=== PATIENT | male | born 1940 | race Caucasian/White ===

== ENCOUNTER 2019-11-20 09:30 | Outpatient (RCR) | payer MEDICARE, OTHER ==
[2019-12-17] MEDS ORDERED: GLIM1TAB4 PO (10:16)
[2019-12-17] MEDS ORDERED: FURO40TA4 PO (10:16)
[2019-12-17] MEDS ORDERED: TERA5CAP3 PO (10:16)
[2019-12-17] MEDS ORDERED: LEVO75TA6 PO (10:16)
[2019-12-17] MEDS ORDERED: TRAM50TA3 PO (10:16)
[2019-12-17] MEDS ORDERED: ASPI-586 PO (10:16)
[2019-12-17] MEDS ORDERED: SIMV40TA25 PO (10:16)
[2019-12-17] MEDS ORDERED: FINA5TAB6 PO (10:16)
[2019-12-17] MEDS ORDERED: CARV6.252 PO (10:16)
[2019-12-17] MEDS ORDERED: AMLO10TA4 PO (10:16)
== END 2020-02-18 | disposition home or self-care (01) ==
LOC: ONC 09:30
PROVIDERS: ATTEND Radiology Radiation Oncology
DX: C61 Malignant neoplasm of prostate (principal); E11.9 Type 2 diabetes mellitus without complications; I10 Essential (primary) hypertension; Z87.442 Personal history of urinary calculi; Z79.82 Long term (current) use of aspirin; Z79.899 Other long term (current) drug therapy; Z79.84 Long term (current) use of oral hypoglycemic drugs; Z96.653 Presence of artificial knee joint, bilateral
CPT/HCPCS: 99204

== ENCOUNTER 2019-12-17 09:36 | Outpatient (CLI) | payer MEDICARE, OTHER ==
[~2019-12-17] VITALS: Ht 170.2 cm; Wt 94.1 kg
[2019-12-17] MEDS ORDERED: ASPI-586 PO (10:16)
[2019-12-17] MEDS ORDERED: AMLO10TA4 PO (10:16)
[2019-12-17] MEDS ORDERED: FURO40TA4 PO (10:16)
[2019-12-17] MEDS ORDERED: GLIM1TAB4 PO (10:16)
[2019-12-17] MEDS ORDERED: FINA5TAB6 PO (10:16)
[2019-12-17] MEDS ORDERED: SIMV40TA25 PO (10:16)
[2019-12-17] MEDS ORDERED: CARV6.252 PO (10:16)
[2019-12-17] MEDS ORDERED: LEVO75TA6 PO (10:16)
[2019-12-17] MEDS ORDERED: TRAM50TA3 PO (10:16)
[2019-12-17] MEDS ORDERED: TERA5CAP3 PO (10:16)
== END 2019-12-17 10:42 | disposition home or self-care (01) ==
LOC: PREOP 09:36
PROVIDERS: ATTEND Radiology Radiation Oncology
DX: Z01.818 Encounter for other preprocedural examination (principal)

== ENCOUNTER 2019-12-23 12:50 | Day surgery (SDC) | payer MEDICARE, OTHER ==
[~2019-12-23] VITALS: Ht 162.6 cm; Wt 94.1 kg
[~2019-12-23 12:50] MED LIST: AMLO10TA4 PO; ASPI-586 PO; CARV6.252 PO; FINA5TAB6 PO; FURO40TA4 PO; GLIM1TAB4 PO; LEVO75TA6 PO; SIMV40TA25 PO; TERA5CAP3 PO; TRAM50TA3 PO
[2019-12-23 13:05] VITALS: BP 160/99
--- NOTE | 2019-12-23 13:07 | Progress Note-Pre Operative ---
Pre-Operative Progress Note H&P Reviewed The H&P was reviewed, patient examined and no changes noted. Date Seen by Provider: Dec 23, 2019 Time Seen by Provider: 13:06 Date H&P Reviewed: Dec 23, 2019 Time H&P Reviewed: 13:06 Pre-Operative Diagnosis: Prostate cancer cT1c, PSA 12.26, [place] 7 (4+3) RUY RUIZ MD Dec 23, 2019 13:07
[2019-12-23] MEDS ORDERED: LACTATED RINGERS 1,000 ML IV PRN (13:11)
--- NOTE | 2019-12-23 13:12 | Discharge Inst-Simple/Standard ---
Discharge Inst-Standard Reconcile Patient Problems Problems Reviewed?: Yes Discharge Medications New, Converted or Re-Newed RX: RX Given to Pt/Family Patient Instructions/Follow Up Plan of Care/Instructions/FU: 1) CT sim at [facility] on 01/06/20 at 8:30 am arrive at 8:15 am Activity as Tolerated: Yes Discharge Diet: No Restrictions RUY RUIZ MD Dec 23, 2019 13:12
[2019-12-23] MEDS ORDERED: LEVOFLOXACIN 500 MG/100 ML IV 100 ML IV ONE (13:15)
[2019-12-23 14:04] LABS: BUN/CREATININE RATIO 11; CALCIUM 9.2 MG/DL (8.5-10.1); CARBON DIOXIDE 23 MMOL/L (21-32); CHLORIDE 109 MMOL/L (98-107); CREATININE SERUM 0.89 MG/DL (0.60-1.30); GFR ESTIMATED > 60; GLUCOSE 117 MG/DL (70-105); POTASSIUM 3.4 MMOL/L (3.6-5.0); SODIUM 142 MMOL/L (135-145)
[2019-12-23] MEDS ORDERED: LIDOCAINE PF 2% 5 ML (XYLOCAINE) VIAL ONE (15:06)
[2019-12-23] MEDS ORDERED: proPOfol 200 MG/20 ML (DIPRIVAN) VIAL IV ONE (15:06)
[2019-12-23] MEDS ORDERED: fentaNYL INJECTION 100 MCG/2 ML AMP ONE (15:07)
[2019-12-23] MEDS ORDERED: ONDANSETRON 4 MG/2 ML (SDV) Z0FRAN ONE (15:07)
[2019-12-23] MEDS ORDERED: SEVOFLURANE (ULTANE) 15 ML INHAL SOLN ONE ×2 (15:07→15:42)
[2019-12-23 15:52] VITALS: BP 154/80
[2019-12-23 16:00] VITALS: BP 148/92
[2019-12-23 16:10] VITALS: BP 157/95
--- NOTE | 2019-12-23 16:11 | Progress Note-Post Operative ---
Post-Operative Progess Note Surgeon (s)/Electrician Journeyman Wireman (s) Surgeon Anny CHOI MD Electrician Journeyman Wireman: RUY RUIZ MD Pre-Operative Diagnosis Prostate cancer cT1c, PSA 12.26, [place] 7 (4+3) Post-Operative Diagnosis Same as pre-op Procedure & Operative Findings Date of Procedure 12/23/19 Procedure Performed/Findings (1) Placement of fiducial gold seed markers (2) Injection of biodegradable hydrogel prostate-rectal spacer utilizing the SpaceOAR system Anesthesia Type General Estimated Blood Loss Estimated blood loss (mL): Minimal Specimens/Packing Specimens Removed None Packing: None RUY RUIZ MD Dec 23, 2019 16:11
--- NOTE | 2019-12-23 16:13 | Anesthesia-General Post-Op ---
General Patient Condition Mental Status/LOC: Same as Preop Cardiovascular: Satisfactory Nausea/Vomiting: Absent Respiratory: Satisfactory Pain: Controlled Complications: Absent Post Op Complications Complications None Follow Up Care/Instructions Patient Instructions None needed. Anesthesia/Patient Condition Patient Condition Patient is doing well, no complaints, stable vital signs, no apparent adverse anesthesia problems. No complications reported per nursing. JUNIOR FOSS CRNA Dec 23, 2019 16:13
[2019-12-23 16:25] VITALS: BP_SYST 157; BP_SYST 162; BP_DIAS 102; BP_DIAS 95
[2019-12-23 17:10] VITALS: BP_SYST 142; BP_SYST 157; BP_DIAS 87; BP_DIAS 95
--- OUTSIDE RECORDS SUMMARY | 2019-12-25 10:11 | XMS REPORT | Continuity of Care Document ---
Author Organization Unknown Address Unknown Phone Unavailable Allergies Active Description Code Type Severity Reaction Onset Reported/Identified Relationship to Patient Clinical Status Yes No Known Drug Allergies [id number] Drug Allergy Unknown N/A 12/17/2019 Medications There is no data. 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, BILAT 12/17/2019 RUY RUIZ MD Ot C61 MALIGNANT NEOPLASM OF PROSTATE 12/17/2019 RUY RUIZ MD Ot E11.9 TYPE 2 DIABETES MELLITUS WITHOUT COMPLIC 12/17/2019 RUY RUIZ MD Ot I10 ESSENTIAL (PRIMARY) HYPERTENSION 12/17/2019 RUY RUIZ MD Ot Z79.8 2 BUSINESS SYSTEM CONSULTANT (CURRENT) USE OF ASPIRIN 12/17/2019 RUY RUIZ MD Ot Z79.8 4 [facility] (CURRENT) USE OF ORAL HYPOGLYC 12/17/2019 RUY RUIZ MD Ot Z79.8 99 OTHER BUSINESS SYSTEM CONSULTANT (CURRENT) DRUG THERAPY 12/17/2019 RUY RUIZ MD Ot Z87.4 42 PERSONAL HISTORY OF URINARY CALCULI 12/17/2019 RUY RUIZ MD Ot 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, BILAT 12/17/2019 RUY RUIZ MD Ot C61 MALIGNANT NEOPLASM OF PROSTATE 12/17/2019 RUY RUIZ MD Ot E11.9 TYPE 2 DIABETES MELLITUS WITHOUT COMPLIC 12/17/2019 RUY RUIZ MD E Ot I10 ESSENTIAL (PRIMARY) HYPERTENSION 12/17/2019 RUY RUIZ MD Ot Z79.8 2 [facility] (CURRENT) USE OF ASPIRIN 12/17/2019 RUY RUIZ MD Ot Z79.8 4 [facility] (CURRENT) USE OF ORAL HYPOGLYC 12/17/2019 RUY RUIZ MD E Ot Z79.8 99 OTHER [facility] (CURRENT) DRUG THERAPY 12/17/2019 RUY RUIZ MD E Ot Z87.4 42 PERSONAL HISTORY OF URINARY CALCULI 12/17/2019 RUY RUIZ MD Ot 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, BILAT 12/17/2019 RUY RUIZ MD Ot C61 MALIGNANT NEOPLASM OF PROSTATE 12/17/2019 RUY RUIZ MD Ot E11.9 TYPE 2 DIABETES MELLITUS WITHOUT COMPLIC 12/17/2019 RUY RUIZ MD Ot I10 ESSENTIAL (PRIMARY) HYPERTENSION 12/17/2019 RUY RUIZ MD Ot Z79.8 2 BUSINESS SYSTEM CONSULTANT (CURRENT) USE OF ASPIRIN 12/17/2019 RUY RUIZ MD Ot Z79.8 4 BUSINESS SYSTEM CONSULTANT (CURRENT) USE OF ORAL HYPOGLYC 12/17/2019 RUY RUIZ MD Ot Z79.8 99 OTHER [facility] (CURRENT) DRUG THERAPY 12/17/2019 RUY RUIZ MD Ot Z87.4 42 PERSONAL HISTORY OF URINARY CALCULI 12/17/2019 RUY RUIZ MD Ot 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, BILAT 12/17/2019 RUY RUIZ MD Ot Z01.8 18 ENCOUNTER FOR OTHER PREPROCEDURAL EXAMIN 12/18/2019 RUY RUIZ MD Ot C61 MALIGNANT NEOPLASM OF PROSTATE 12/18/2019 RUY RUIZ MD Ot E11.9 TYPE 2 DIABETES MELLITUS WITHOUT COMPLIC 12/18/2019 RUY RUIZ MD E Ot I10 ESSENTIAL (PRIMARY) HYPERTENSION 12/18/2019 RUY RUIZ MD Ot Z79.8 2 BUSINESS SYSTEM CONSULTANT (CURRENT) USE OF ASPIRIN 12/18/2019 RUY RUIZ MD E Ot Z79.8 4 [facility] (CURRENT) USE OF ORAL HYPOGLYC 12/18/2019 DEBBIE RUIZ MDANE E Ot Z79.8 99 OTHER [facility] (CURRENT) DRUG THERAPY 12/18/2019 RUY RUIZ MD E Ot Z87.4 42 PERSONAL HISTORY OF URINARY CALCULI 12/18/2019 RUY RUIZ MD E Ot 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, BILAT 12/23/2019 RUY RUIZ MD E Ot C61 MALIGNANT NEOPLASM OF PROSTATE 12/23/2019 DEBBIE RUIZ MDANE E Ot E11.9 TYPE 2 DIABETES MELLITUS WITHOUT COMPLIC 12/23/2019 DEBBIE RUIZ MDANE E Ot I10 ESSENTIAL (PRIMARY) HYPERTENSION 12/23/2019 DEBBIE RUIZ MDANE E Ot Z79.8 2 [facility] (CURRENT) USE OF ASPIRIN 12/23/2019 RUY RUIZ MD E Ot Z79.8 4 [facility] (CURRENT) USE OF ORAL HYPOGLYC 12/23/2019 RUY RUIZ MD E Ot Z79.8 99 OTHER BUSINESS SYSTEM CONSULTANT (CURRENT) DRUG THERAPY 12/23/2019 RUY RUIZ MD E Ot Z87.4 42 PERSONAL HISTORY OF URINARY CALCULI 12/23/2019 RUY RUIZ MD E Ot 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, BILAT 12/23/2019 RUY RUIZ MD E Ot C61 MALIGNANT NEOPLASM OF PROSTATE 12/23/2019 RUY RUIZ MD E Ot E11.9 TYPE 2 DIABETES MELLITUS WITHOUT COMPLIC 12/23/2019 DEBBIE RUIZ MDANE E Ot I10 ESSENTIAL (PRIMARY) HYPERTENSION 12/23/2019 RUY RUIZ MD E Ot Z79.8 2 BUSINESS SYSTEM CONSULTANT (CURRENT) USE OF ASPIRIN 12/23/2019 RUY RUIZ MD E Ot Z79.8 4 [facility] (CURRENT) USE OF ORAL HYPOGLYC 12/23/2019 RUY RUIZ MD E Ot Z79.8 99 OTHER [facility] (CURRENT) DRUG THERAPY 12/23/2019 RUY RUIZ MD E Ot Z87.4 42 PERSONAL HISTORY OF URINARY CALCULI 12/23/2019 RUY RUIZ MD E Ot 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, BILAT 12/23/2019 RUY RUIZ MD E Ot C61 MALIGNANT NEOPLASM OF PROSTATE 12/23/2019 RUY RUIZ MD E Ot E11.9 TYPE 2 DIABETES MELLITUS WITHOUT COMPLIC 12/23/2019 DEBBIE RUIZ MDANE E Ot I10 ESSENTIAL (PRIMARY) HYPERTENSION 12/23/2019 RUY RUIZ MD Ot Z79.8 2 BUSINESS SYSTEM CONSULTANT (CURRENT) USE OF ASPIRIN 12/23/2019 RUY RUIZ MD Ot Z79.8 4 BUSINESS SYSTEM CONSULTANT (CURRENT) USE OF ORAL HYPOGLYC 12/23/2019 RUY RUIZ MD Ot Z79.8 99 OTHER BUSINESS SYSTEM CONSULTANT (CURRENT) DRUG THERAPY 12/23/2019 RUY RUIZ MD Ot Z87.4 42 PERSONAL HISTORY OF URINARY CALCULI 12/23/2019 RUY RUIZ MD Ot 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, BILAT 12/25/2019 RUY RUIZ MD Ot C61 MALIGNANT NEOPLASM OF PROSTATE 12/25/2019 RUY RUIZ MD Ot E11.9 TYPE 2 DIABETES MELLITUS WITHOUT COMPLIC 12/25/2019 RUY RUIZ MD Ot I10 ESSENTIAL (PRIMARY) HYPERTENSION 12/25/2019 RUY RUIZ MD Ot M19.9 0 UNSPECIFIED OSTEOARTHRITIS, UNSPECIFIED 12/25/2019 RUY RUIZ MD Ot R97.2 0 ELEVATED PROSTATE SPECIFIC ANTIGEN [PSA] 12/25/2019 RUY RUIZ MD Ot Z79.8 2 BUSINESS SYSTEM CONSULTANT (CURRENT) USE OF ASPIRIN 12/25/2019 RUY RUIZ MD Ot Z79.8 4 [facility] (CURRENT) USE OF ORAL HYPOGLYC 12/25/2019 RUY RUIZ MD Ot Z79.8 99 OTHER BUSINESS SYSTEM CONSULTANT (CURRENT) DRUG THERAPY 12/25/2019 RUY RUIZ MD Ot Z90.4 9 ACQUIRED ABSENCE OF OTHER SPECIFIED PART 12/25/2019 RUY RUIZ MD Ot Z95.0 PRESENCE OF CARDIAC PACEMAKER 12/25/2019 RUY RUIZ MD Ot Z96.6 51 PRESENCE OF RIGHT ARTIFICIAL KNEE JOINT 12/25/2019 RUY RUIZ MD Ot Z96.6 52 PRESENCE OF LEFT ARTIFICIAL KNEE JOINT Procedures There is no data. Results Test Result Range Capillary blood glucose measurement by g lucometer (mass/volume) - 12/23/19 13:19 Capillary blood glucose measurement by glucometer (mas s/volume) 121 mg/dL 70-110 Whole blood basic metabolic panel - 12/12 11/02 13:30 Serum or plasma sodium measurement (moles/volume) 142 mmol/L 135-145 Serum or plasma potassium measurement (moles/volume) 3.4 mmol/L 3.6-5.0 Serum or plasma chloride measurement (moles/volume) 109 mmol/L 98-107 Carbon dioxide 23 mmol/L 21-32 Serum or plasma anion gap determination (moles/volume) 10 mmol/L 5-14 Serum or plasma urea nitrogen measurement (mass/volume ) 10 mg/dL 7-18 Serum or plasma creatinine measurement (mass/volume) 0.89 mg/dL 0.60-1.30 Serum or plasma urea nitrogen/creatinine mass ratio 11 NRG Serum or plasma creatinine measurement w ith calculation of estimated glomerular filtration rate > NRG Serum or plasma glucose measurement (mass/volume) 117 mg/dL 70-105 Serum or plasma calcium measurement (mass/volume) 9.2 mg/dL 8.5-10.1 Methicillin resistant Staphylococcus aur eus (MRSA) screening culture - 12/23/19 13:30 Methicillin resistant Staphylococcus aureus (MRSA) scr eening culture NEG NRG Encounters ACCT No. Visit Date/Time Discharge Status Pt. Type Provider Facility Loc./Unit Complaint [id number] 12/23/2019 12:50:00 17:10:00 DIS Outpatient RUY RUIZ MD [facility] SDC PROSTATE CANCER [id number] 12/17/2019 09:36:00 10:42:00 DIS Outpatient RUY RUIZ MD [facility] PREOP PROSTATE CANCER [id number] 11/20/2019 09:30:00 23:59:59 CLS Outpatient RUY RUIZ MD [facility] ONC
== END 2019-12-23 17:10 | disposition home or self-care (01) ==
LOC: SDC 12:50
PROVIDERS: ATTEND Radiology Radiation Oncology
DX: C61 Malignant neoplasm of prostate (principal); R97.20 Elevated prostate specific antigen [PSA]; E11.9 Type 2 diabetes mellitus without complications; I10 Essential (primary) hypertension; M19.90 Unspecified osteoarthritis, unspecified site; Z95.0 Presence of cardiac pacemaker; Z96.651 Presence of right artificial knee joint; Z96.652 Presence of left artificial knee joint; Z90.49 Acquired absence of other specified parts of digestive tract; Z79.82 Long term (current) use of aspirin; Z79.84 Long term (current) use of oral hypoglycemic drugs; Z79.899 Other long term (current) drug therapy
CPT/HCPCS: 36415; 80048; 82962; 87081